=== PATIENT | male | born 2000 | race African-American/Black ===

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

== ENCOUNTER 2021-12-08 17:00 | Emergency (ER) | payer MEDICAID, OTHER ==
[~2021-12-08] VITALS: Ht 188 cm; Wt 125.7 kg
[~2021-12-08 17:00] MED LIST changes: +FLUT10.6 IH; +PRED20TA PO; +VENTOLIN HFA18 GM INH
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
[2021-12-08 19:05] VITALS: BP 138/80
== END 2021-12-08 19:05 | disposition home or self-care (01) ==
LOC: ER 17:00
DX: S00.83XA Contusion of other part of head, initial encounter (principal); H11.32 Conjunctival hemorrhage, left eye; R51.9 Headache, unspecified; I10 Essential (primary) hypertension; J45.909 Unspecified asthma, uncomplicated; Y04.0XXA Assault by unarmed brawl or fight, initial encounter; Y93.89 Activity, other specified; Y92.89 Other specified places as the place of occurrence of the external cause; Y99.8 Other external cause status
CPT/HCPCS: 70450; 70486; 99284-25